=== PATIENT | male | born 1990 | race Caucasian/White ===

== ENCOUNTER 2020-03-13 11:54 | Emergency (ER) | payer SELFPAY ==
[2020-03-13 12:28] VITALS: O2SAT 98
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
[2020-03-13 13:45] VITALS: BP 138/88; PULSE 87
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
== END 2020-03-13 13:51 | disposition home or self-care (01) ==
LOC: ED 11:54
DX: M54.2 Cervicalgia (principal); R51.9 Headache, unspecified; M79.641 Pain in right hand; S40.212A Abrasion of left shoulder, initial encounter; V89.2XXA Person injured in unspecified motor-vehicle accident, traffic, initial encounter
CPT/HCPCS: 36000; 70450; 71260; 72125; 73130; 74177; 99284

== ENCOUNTER 2020-05-23 20:45 | Emergency (ER) | payer MEDICAID ==
[2020-05-23] MEDS ORDERED: Sodium Chloride 0.9% 1000 ML 1,000 ML IV STA (20:47)
[2020-05-23] MEDS ORDERED: Ativan 2 MG/1 ML VIAL IV ONE (20:47)
[2020-05-23] MEDS ORDERED: Zofran 4 MG/2 ML VIAL IV ONE (20:47)
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
[2020-05-23 20:48] VITALS: O2SAT 96
[2020-05-23] MEDS ORDERED: Zofran 4 MG/2 ML VIAL ONE (21:06)
[2020-05-23] MEDS ORDERED: Ativan 2 MG/1 ML VIAL ONE (21:07)
[2020-05-23 21:08] LABS: Absolute Neutrophil Ct (ANC) 8.96 (1.4-6.9); BASOPHIL % 0.2 % (0.0-0.4); Basophil (Absolute #) 0.02 (0-0.4); Eosinophil % 0.2 % (0.00-5.0); Eosinophil (Absolute #) 0.03 (0-0.5); Hematocrit 48.3 % (42-50); Hemoglobin 16.5 gm/dl (12.5-18.0); Lymphocyte (Absolute #) 2.77 (1.0-4.6); Lymphocytes % 21.6 % (24.0-44.0); Mean Cell Volume 93.8 fl (78-100); Mean Corpuscular Hgb Concent. 34.2 g/dl (32-36); Monocyte (Absolute #) 1.03 (0.0-1.3); Platelet Count 273 K/mm3 (150-450); Red Blood Count 5.15 M/mm3 (4.1-5.6); Red Cell Distribution Width 13.7 % (11.5-14.0); White Blood Count 12.8 K/mm3 (4.0-10.5)
[2020-05-23] MEDS ORDERED: Sodium Chloride 0.9% 1000 ML 1,000 ML ONE (21:08)
[2020-05-23 21:18] LABS: ALBUMIN 5.3 g/dL (3.5-5.0); ALKALINE PHOSPHATASE 90 U/L (38-126); ANION GAP 28.6 MEQ/L (5-15); BLOOD UREA NITROGEN 11 mg/dL (9-20); CHLORIDE 97 mmol/L (98-107); Calcium 10.5 mg/dL (8.4-10.2); Creatinine 1 0.86 mg/dL (0.66-1.25); EST GLOMERULAR FILTRATION RATE > 60.0 ML/MIN; Glucose 144 mg/dL (74-106); Potassium 3.6 mmol/L (3.5-5.1); SGOT/AST 95 U/L (17-59); SODIUM 137 mmol/L (137-145); Total Protein 8.9 g/dL (6.3-8.2)
[2020-05-23 21:24] LABS: SGPT/ALT 118 U/L (0-50)
[2020-05-23 21:26] LABS: Carbon Dioxide 16 mmol/L (22-30)
[2020-05-23 21:34] LABS: Appearance SLIGHTLY CLOUDY (CLEAR); Bacteria RARE /HPF (NEGATIVE); Bilirubin NEGATIVE (NEGATIVE); Blood MODERATE Ery/ul (0-5); Glucose NEGATIVE (NEGATIVE); Ketones NEGATIVE (NEGATIVE); Leukocyte Esterase NEGATIVE (NEGATIVE); Mucus SLIGHT /HPF (NEGATIVE); Nitrite NEGATIVE (NEGATIVE); Protein,Urine Dip >=500 (Negative); Specific Gravity 1.019 (1.005-1.025); Urobilinogen NEGATIVE mg/dL (0-1)
[2020-05-23 21:35] LABS: Sperm PRESENT /HPF (NEGATIVE)
[2020-05-23 21:41] LABS: Barbiturate,Urine NEGATIVE (NEGATIVE); Benzodiazepine,Urine NEGATIVE (NEGATIVE); Cocaine,Urine NEGATIVE (NEGATIVE); Methadone,Urine NEGATIVE (NEGATIVE); Opiate,Urine NEGATIVE (NEGATIVE); PCP,Urine NEGATIVE (NEGATIVE); THC,Urine POSITIVE (NEGATIVE)
[2020-05-23 21:54] LABS: Amphetamine,Urine POSITIVE (NEGATIVE)
[2020-05-23 22:31] VITALS: BP 149/95; PULSE 94
--- NOTE | 2020-05-24 08:42 | XRAY ---
Indication: Epistaxis. Headache. Multiple contiguous axial images obtained through the head without contrast. Comparison: March 13, 2020. Normal appearing brain parenchyma, ventricles, and bony calvarium. Visualized paranasal sinuses and mastoid air cells are clear. Impression: Continued normal CT head without contrast exam.
== END 2020-05-23 22:32 | disposition home or self-care (01) ==
LOC: ED 20:45
DX: R56.9 Unspecified convulsions (principal); F15.90 Other stimulant use, unspecified, uncomplicated
CPT/HCPCS: 36415; 70450; 80053; 80307; 81001; 85025; 87086; 93005; 94760; 96374; 99284; J2060; J2405